=== PATIENT | female | born 1990 | race Caucasian/White ===

== ENCOUNTER → 2017-08-19 14:42 | Outpatient (CLI) | payer OTHER, MEDICAID, SELFPAY | PROVIDERS: Family Provider Internal Medicine; PCP Internal Medicine; Visit Provider Physician Assistant | DX: J02.9 Acute pharyngitis, unspecified (principal) | CPT/HCPCS: 87081 ==

== ENCOUNTER → 2017-09-30 14:55 | Outpatient (CLI) | payer OTHER, SELFPAY ==
[2017-09-30 15:57] LABS: Hematocrit 39.4 % (37-47); Hemoglobin 12.7 g/dl (12.0-15.0); Mean Corp Hgb Conc 32.2 g/gl (32-36); Mean Corpuscular Hgb 29.3 pg (27.0-32.0); Mean Platelet Vol. 9.5 fl (6.2-12.0); Platelet Count 230 K/mm3 (150-450); RBC Distribution Width CV 13.7 % (11.6-14.6); Red Blood Count 4.33 M/mm3 (4.2-5.4); White Blood Count 7.5 K/mm3 (4.4-11.0)
[2017-09-30 15:58] LABS: Scan Indicated on CBC? Y/N NO
[2017-09-30 16:05] LABS: International Normalized Ratio 1.1; Prothrombin Time (Protime)PT. 13.7 SECONDS (11.7-14.9)
== END ==
PROVIDERS: Family Provider Internal Medicine; PCP Internal Medicine; Visit Provider Nurse Practitioner Family
DX: R23.8 Other skin changes (principal); R58 Hemorrhage, not elsewhere classified
CPT/HCPCS: 36415; 85027; 85610

== ENCOUNTER → 2018-01-12 16:26 | Outpatient (CLI) | payer OTHER, SELFPAY | PROVIDERS: Visit Provider Obstetrics & Gynecology | DX: N39.0 Urinary tract infection, site not specified (principal) | CPT/HCPCS: 87077; 87086; 87088; 87186 ==

== ENCOUNTER → 2018-08-31 12:04 | Outpatient (CLI) | payer SELFPAY ==
[2017-11-17 13:07] VITALS: BMI 18.8
[2018-08-31 14:34] LABS: HIV - WCH Non-Reactive (Nonreactive)
[2018-09-01 05:06] LABS: HEPATITIS B SURFACE AG Negative (Negative); Hepatitis A AB, Total Positive (Negative); Hepatitis A IgM Antibody Negative (Negative); Hepatitis B Core AB IgM Negative (Negative); Hepatitis B Core Ab Total Negative (Negative); Hepatitis C Ab <0.1 s/co ratio (0.0-0.9)
[2018-09-01 11:39] LABS: Hep B Surface Antibodies Non Reactive (.)
== END ==
PROVIDERS: Family Provider Internal Medicine; PCP Internal Medicine; Referring Provider Dermatology; Visit Provider Dermatology
DX: Z77.21 Contact with and (suspected) exposure to potentially hazardous body fluids (principal)
CPT/HCPCS: 36415; 86703; 86704; 86705; 86706; 86708; 86709; 86803; 87340

== ENCOUNTER → 2018-11-29 12:19 | Outpatient (CLI) | payer OTHER, SELFPAY ==
[2018-09-07 16:13] VITALS: BMI 18.8
[2018-11-29 14:45] LABS: HIV - WCH Non-Reactive (Nonreactive)
[2018-11-30 05:06] LABS: HEPATITIS B SURFACE AG Negative (Negative); Hepatitis A AB, Total Positive (Negative); Hepatitis A IgM Antibody Negative (Negative); Hepatitis B Core AB IgM Negative (Negative); Hepatitis B Core Ab Total Negative (Negative); Hepatitis C Ab <0.1 s/co ratio (0.0-0.9)
[2018-11-30 12:19] LABS: Hep B Surface Antibodies Non Reactive (.)
== END ==
PROVIDERS: Family Provider Internal Medicine; PCP Internal Medicine; Referring Provider Dermatology; Visit Provider Dermatology
DX: Z77.21 Contact with and (suspected) exposure to potentially hazardous body fluids (principal)
CPT/HCPCS: 36415; 86703; 86704; 86705; 86706; 86708; 86709; 86803; 87340

== ENCOUNTER → 2020-02-21 10:02 | Outpatient (CLI) | payer OTHER, SELFPAY ==
[2018-09-07 16:13] VITALS: BMI 18.8
[2020-02-21 11:29] LABS: Thyroid Stim Hormone (TSH) 1.86 uIU/mL (0.358-3.74)
[2020-02-24 17:17] LABS: HPV Reflexed? YES, CHARGE PATIENT
== END ==
PROVIDERS: PCP Internal Medicine; Visit Provider Student in an Organized Health Care Education/Training Program
DX: Z12.4 Encounter for screening for malignant neoplasm of cervix (principal); N92.6 Irregular menstruation, unspecified
CPT/HCPCS: 36415; 84443; 87624; 88175; G0145

== ENCOUNTER → 2020-04-09 16:45 | Outpatient (CLI) | payer OTHER, SELFPAY ==
[2018-09-07 16:13] VITALS: BMI 18.8
[2020-04-12 03:07] LABS: Chlamydia By Nucleic Acid AMP Negative (Negative)
[2020-04-12 08:45] LABS: Gonococcus By Nucleic Acid AMP Negative (Negative)
== END ==
PROVIDERS: PCP Internal Medicine; Visit Provider Student in an Organized Health Care Education/Training Program
DX: Z30.430 Encounter for insertion of intrauterine contraceptive device (principal); Z11.3 Encounter for screening for infections with a predominantly sexual mode of transmission
CPT/HCPCS: 87491; 87591

== ENCOUNTER → 2020-04-17 10:06 | Outpatient (CLI) | payer OTHER, SELFPAY ==
[2018-09-07 16:13] VITALS: BMI 18.8
== END ==
PROVIDERS: PCP Internal Medicine; Referring Provider Dermatology; Visit Provider Dermatology
DX: U07.1 COVID-19 (principal)
CPT/HCPCS: 87635; C9803; U0003

== ENCOUNTER → 2020-12-14 14:47 | Outpatient (CLI) | payer OTHER, SELFPAY ==
[2020-12-14 14:09] VITALS: BMI 20.2
[2020-12-14 16:54] LABS: Absolute Lymphocyte Count 1.94 X10^3/uL (0.83-4.51); Absolute Neutrophil Count 4.4 X10^3/uL (2.0-7.7); Basophil# 0.03 X10^3/uL; Basophil% 0.4 % (0-1); Eosinophil# 0.06 X10^3/uL; Eosinophils% 0.9 % (0-5); Hematocrit 41.6 % (37-47); Hemoglobin 13.5 g/dL (12.0-15.0); Lymphocyte # 1.94 X10^3/ul (0.83-4.51); Lymphocyte % 28.2 % (19-41); Mean Corp Hgb Conc 32.5 g/dL (32-36); Mean Corpuscular Hgb 30.3 pg (27.0-32.0); Mean Corpuscular Volume 93.5 fL (81-99); Monocyte# 0.47 X10^3/uL; Monocyte% 6.8 % (0-10); NRBC Flagged by Analyzer 0 % (0-5); Neutrophil # 4.37 X10^3/uL (2.7-7.7); Neutrophil % 63.4 % (47-70); Platelet Count 320 K/mm3 (150-450); RBC Distribution Width SD 44.6 fl (35.1-43.9); Red Blood Count 4.45 M/mm3 (4.2-5.4); White Blood Count 6.9 K/mm3 (4.4-11.0)
[2020-12-14 17:36] LABS: ALB/GLOB Ratio 1.1 RATIO (0.9-2.4); AST(SGOT) 17 U/L (15-37); Alanine Aminotransfer ALT/SGPT 28 U/L (13-56); Albumin, Serum 4.1 g/dL (3.2-5.0); Alkaline Phosphatase 65 U/L (45-117); Anion Gap 5 (5-15); BUN 16 mg/dL (7-18); Calcium,Total 8.8 mg/dL (8.5-10.1); Chloride 102 mmol/L (98-107); EST Glomerular Filtration Rate 69 mL/min (>60); Est Glom Filt Rate - Afr Amer 83 mL/min (>60); Globulin 3.8 g/dL (2.2-4.2); Glucose 77 mg/dL (74-106); Protein, Total 7.9 g/dL (6.4-8.2); Sodium Level 137 mmol/L (136-145); T4 Free Direct 1.06 ng/dL (0.76-1.46); Thyroid Stim Hormone (TSH) 1.32 uIU/mL (0.358-3.74)
== END ==
PROVIDERS: PCP Internal Medicine; Referring Provider Internal Medicine; Visit Provider Internal Medicine
DX: F41.9 Anxiety disorder, unspecified (principal); F32.9 Major depressive disorder, single episode, unspecified
CPT/HCPCS: 36415; 80053; 84439; 84443; 85025

== ENCOUNTER → 2021-01-11 13:59 | Outpatient (CLI) | payer OTHER, SELFPAY ==
[2021-01-11 15:41] LABS: Amphetamine Urine VISTA NEGATIVE (<1000 ng/mL); Barbiturate Urine VISTA NEGATIVE (< 200 ng/mL); Benzodiazepine Urine VISTA NEGATIVE (< 200 ng/mL); Cocaine Urine VISTA NEGATIVE (< 300 ng/mL); Ecstacy Urine VISTA NEGATIVE (< 500 ng/mL); Methadone Urine VISTA NEGATIVE (< 300 ng/mL); PCP Urine VISTA NEGATIVE (< 25 ng/mL); THC Urine VISTA NEGATIVE (< 50 ng/mL); Vista UDS pH Range 7
== END ==
PROVIDERS: PCP Internal Medicine; Referring Provider Nurse Practitioner Family; Visit Provider Nurse Practitioner Family
DX: F41.1 Generalized anxiety disorder (principal); F41.0 Panic disorder [episodic paroxysmal anxiety]
CPT/HCPCS: 80307

== ENCOUNTER → 2021-10-18 | Outpatient (CLI) | payer BC, SELFPAY ==
[2021-10-18 11:58] LABS: Basophil# 0.03 X10^3/uL; Basophil% 0.5 % (0-1); Eosinophils% 1.8 % (0-5); Hematocrit 39.8 % (37-47); Lymphocyte % 35.3 % (19-41); Mean Corp Hgb Conc 32.7 g/dL (32-36); Mean Corpuscular Hgb 30.4 pg (27.0-32.0); Mean Platelet Vol. 9.7 fl (6.2-12.0); Monocyte# 0.49 X10^3/uL; Monocyte% 8.7 % (0-10); NRBC Flagged by Analyzer 0 % (0-5); Neutrophil # 3.02 X10^3/uL (2.7-7.7); Neutrophil % 53.3 % (47-70); Platelet Count 264 K/mm3 (150-450); RBC Distribution Width CV 12.6 % (11.6-14.6); RBC Distribution Width SD 43.3 fl (35.1-43.9); Red Blood Count 4.28 M/mm3 (4.2-5.4); White Blood Count 5.7 K/mm3 (4.4-11.0)
[2021-10-18 12:29] LABS: AST(SGOT) 12 U/L (15-37); Alanine Aminotransfer ALT/SGPT 23 U/L (13-56); Albumin, Serum 3.9 g/dL (3.2-5.0); Alkaline Phosphatase 59 U/L (45-117); Anion Gap 6 (5-15); BUN 13 mg/dL (7-18); BUN/Creat Ratio 15.2 RATIO (10-20); Calcium,Total 8.9 mg/dL (8.5-10.1); Chloride 103 mmol/L (98-107); Cholesterol 138 mg/dL (200); Creatinine, Serum 0.86 mg/dL (0.55-1.02); EST Glomerular Filtration Rate 82 mL/min (>60); Est Glom Filt Rate - Afr Amer 99 mL/min (>60); Globulin 3.9 g/dL (2.2-4.2); Glucose 81 mg/dL (74-106); High Density Lipoprotein 71 mg/dL; Potassium 4.4 mmol/L (3.5-5.1); Protein, Total 7.8 g/dL (6.4-8.2); Sodium Level 136 mmol/L (136-145); Thyroid Stim Hormone (TSH) 1.95 uIU/mL (0.358-3.74); Triglycerides 33 mg/dL; Very Low Density Lipoprotein 7 mg/dL (5-40)
== END | disposition home or self-care (01) ==
LOC: BIMLAB 10:57
PROVIDERS: PCP Internal Medicine; Visit Provider Physician Assistant
DX: D64.9 Anemia, unspecified (principal); F41.9 Anxiety disorder, unspecified; F32.9 Major depressive disorder, single episode, unspecified; Z13.220 Encounter for screening for lipoid disorders
CPT/HCPCS: 36415; 80053; 80061; 84443; 85025

== ENCOUNTER → 2022-11-07 | Outpatient (CLI) | payer BC, SELFPAY ==
[2022-11-07 12:31] LABS: Absolute Lymphocyte Count 1.85 X10^3/uL (0.83-4.51); Absolute Neutrophil Count 2.3 X10^3/uL (2.0-7.7); Basophil# 0.03 X10^3/uL; Basophil% 0.6 % (0-1); Eosinophils% 2.1 % (0-5); Hematocrit 40.3 % (37-47); Hemoglobin 12.9 g/dL (12.0-15.0); Lymphocyte # 1.85 X10^3/ul (0.83-4.51); Lymphocyte % 39.7 % (19-41); Mean Corpuscular Hgb 30.4 pg (27.0-32.0); Mean Platelet Vol. 10.1 fl (6.2-12.0); Monocyte# 0.38 X10^3/uL; Monocyte% 8.2 % (0-10); NRBC Flagged by Analyzer 0 % (0-5); Neutrophil # 2.29 X10^3/uL (2.7-7.7); Neutrophil % 49.2 % (47-70); Platelet Count 283 K/mm3 (150-450); RBC Distribution Width CV 12.6 % (11.6-14.6); RBC Distribution Width SD 43.5 fl (35.1-43.9); Red Blood Count 4.24 M/mm3 (4.2-5.4); White Blood Count 4.7 K/mm3 (4.4-11.0)
[2022-11-07 12:41] LABS: Vitamin B12 284 pg/mL (211-911); Vitamin D,25 Hydroxy 34.8 ng/mL
[2022-11-07 12:57] LABS: ALB/GLOB Ratio 1.1 RATIO (0.9-2.4); AST(SGOT) 12 U/L (15-37); Alanine Aminotransfer ALT/SGPT 17 U/L (13-56); Albumin, Serum 3.9 g/dL (3.2-5.0); Alkaline Phosphatase 65 U/L (45-117); Anion Gap 5 (5-15); BUN 11 mg/dL (7-18); BUN/Creat Ratio 13.1 RATIO (10-20); Calcium,Total 8.9 mg/dL (8.5-10.1); Chloride 107 mmol/L (98-107); Cholesterol 127 mg/dL (200); Creatinine, Serum 0.84 mg/dL (0.55-1.02); EST Glomerular Filtration Rate 83 mL/min (>60); Est Glom Filt Rate - Afr Amer 100 mL/min (>60); Globulin 3.4 g/dL (2.2-4.2); Glucose 80 mg/dL (74-106); High Density Lipoprotein 69 mg/dL; Potassium 3.9 mmol/L (3.5-5.1); Protein, Total 7.3 g/dL (6.4-8.2); Sodium Level 139 mmol/L (136-145); Thyroid Stim Hormone (TSH) 2.21 uIU/mL (0.358-3.74); Triglycerides 32 mg/dL; Very Low Density Lipoprotein 6 mg/dL (5-40)
== END | disposition home or self-care (01) ==
LOC: BIMLAB 10:13
PROVIDERS: PCP Internal Medicine; Referring Provider Nurse Practitioner Family; Visit Provider Nurse Practitioner Family
DX: F41.1 Generalized anxiety disorder (principal); F41.0 Panic disorder [episodic paroxysmal anxiety]; E56.9 Vitamin deficiency, unspecified
CPT/HCPCS: 36415; 80053; 80061; 82306; 82607; 84443; 85025

== ENCOUNTER → 2024-11-16 | Outpatient (CLI) | payer BC, SELFPAY ==
[2024-11-16 16:49] LABS: Hematocrit 40.1 % (37-47); Hemoglobin 13.5 g/dL (12.0-15.0); Immature Granulocytes Count 0.010 X10^3/uL (0.0-0.0); Mean Corp Hgb Conc 33.7 g/dL (32-36); Mean Corpuscular Volume 90.3 fL (81-99); Mean Platelet Vol. 9.4 fl (6.2-12.0); NRBC Flagged by Analyzer 0 % (0-5); Platelet Count 294 K/mm3 (150-450); RBC Distribution Width CV 12.7 % (11.6-14.6); RBC Distribution Width SD 42.1 fl (35.1-43.9); Red Blood Count 4.44 M/mm3 (4.2-5.4); White Blood Count 5.7 K/mm3 (4.4-11.0)
[2024-11-16 17:41] LABS: AST(SGOT) 27 U/L (<=31); Alanine Aminotransfer ALT/SGPT 31 U/L (<=34); Albumin, Serum 4.4 g/dL (3.5-5.0); Alkaline Phosphatase 73 U/L (35-104); Anion Gap 12 (5-15); BUN 20 mg/dL (4-19); BUN/Creat Ratio 24.4 RATIO (10-20); Calcium,Total 9.4 mg/dL (7.6-11.0); Carbon Dioxide 22.2 mmol/L (21.0-32.0); Chloride 102 mmol/L (98-108); Cholesterol 184 mg/dL (<=200); Globulin 3.2 g/dL (2.2-4.2); Glucose 80 mg/dL (70-99); Low Density Lipoprotein Calc. 104 mg/dL; Potassium 4.3 mmol/L (3.3-5.1); Triglycerides 45 mg/dL; Very Low Density Lipoprotein 9 mg/dL (5-40); Vitamin B12 456 pg/mL (180-914); Vitamin D,25 Hydroxy 32.2 ng/mL (30-100); cholesterol:hdl ratio screen 2.59
== END | disposition home or self-care (01) ==
LOC: VSLAB 11:42
PROVIDERS: PCP Nurse Practitioner Family; Visit Provider Nurse Practitioner Family
DX: F41.9 Anxiety disorder, unspecified (principal); E56.9 Vitamin deficiency, unspecified; Z13.228 Encounter for screening for other metabolic disorders
CPT/HCPCS: 36415; 80053; 80061; 82306; 82607; 83036; 84443; 85025; 86376

== ENCOUNTER → 2025-03-24 | Outpatient (CLI) | payer BC, SELFPAY ==
[2025-03-24 11:53] LABS: Creatinine, Urine (random) 30.70 mg/dL (28.00-217.00); Microalbumin,Random Urine 21.4 mg/L (<20 mg/L)
--- OUTSIDE RECORDS SUMMARY | 2025-03-24 11:59 | XMS RPT_ITS | CCD ---
Author Organization [facility] Care Team Providers Care Manager Deli Name Role Phone Dr. Santana Pa Primary Care Provider [phone] Dr. Santana Pa Referring Provider [phone] STEPHANIE Maddox Attending Provider Unavailab Dr. Santana Finch Primary Care Provider [phone] Dr. Santana Pa Referring Provider [phone] Chiara RICE FARMER RICE FARMER-C Justin Attending Provider [phone] Unavailable Primary Care Provider Unavailabl e Chiara RICE FARMER-CJustin Primary Care Provider Chiara RICE FARMER-C, Justin Attending Provider Justin Green Attending Unavailable Justin Green Primary Care Unavailable Medications Current Medications Medication Drug Class(es) Dates Sig (Normalized) Sig (Original) escitalopram 10 mg oral tablet (18 sources) Serotonin Reuptake Inhibitor Start: 12-18-2022 End: 09-03-2023 take 1 tablet by mouth once daily Escitalopram Oxalate 10 mg tablet Active 10 mg PO DAILY 30 0 September 03, 2023 11:31am Start: 04-25-2022 End: 11-07-2022 Escitalopram Oxalate 5 mg ta blet Discontinued 5 mg .ROUTE .COMPLEX 90 3 November 07, 2022 9:59am November 07, 2022 10:04am 5 mg; Start: 01-11-2021 End: 04-25-2022 take 1 tablet by mouth once daily Escitalopram Oxalate 10 mg tablet Discontinued 0 .ROUTE .COMPLEX 90 0 February 07, 2022 4:23pm April 25, 2022 10:56am take 1 tablet by mouth once daily Start: 12-14-2020 End: 01-11-2021 take 1 tablet by mouth once daily Escitalopram Oxalate 5 mg tablet Discontinued 5 mg PO DAILY 30 December 14, 2020 12:00am January 11, 2021 1:34pm levonorgestrel 0.928068 mg/hr intrauterine system (3 sources) Progestin, Progestin-containing Intrauterine Device Start: 09-30-2017 Levonorgestrel (Mirena) 20 mcg/24 hr (5 years) intrauterine device Active 1 NMA INTRA-UTER ONCE September 30, 2017 12:00am Start: 09-30-2017 Levonorgestrel (Mirena) 20 mcg/24 hr (5 years) intrauterine device Active 1 INSERT INTRA-UTER ONCE September 30, 2017 9:34am tiZANidine 2 mg oral tablet (2 sources) Central alpha-2 Adrenergic Agonist Start: 09-11-2022 take 1 tablet by mouth at bedtime as needed Tizanidine 2 mg tablet Active 2 mg PO BEDTIME as needed for muscle spasticity September 11, 2022 12:00am vitamin b12 1 mg/ml injectable solution (2 sources) Vitamin B12 Start: 11-07-2022 inject 1000 ug by intramuscular injection every month Cyanocobalamin (Vitamin B-12) 1,000 mcg/mL solution Active 1000 ug IM EVERY MONTH 100 November 07, 2022 12:00am Cobalamin deficiency Deficiency of other specified B group vitamins Start: 11-07-2022 inject 1000 ug by in tramuscular injection every month Cyanocobalamin (Vitamin B-12) Active 1000 MCG IM EVERY MONTH 100 November 07, 2022 12:00am Completed/Discontinued Medications Medication Drug Class(es) Dates Sig (Normalized) Sig (Original) acetaminophen 325 mg / oxyCODONE hydrochloride 5 mg oral tablet (3 sources) Opioid Agonist Start: 07-26-2016 End: 08-19-2017 Oxycodone-Acetamino phen 1 TABLET tablet Discontinued 1 - 2 {tbl} PO EVERY 4 HOURS NEEDED as needed for Pain July 26, 2016 1:00am August 19, 2017 8:25am Start: 07-26-2016 End: 08-19-2017 take 1 tablet by mouth every four hours as needed Oxycodone-Acetaminophen Discontinued 1 - 2 TABLET PO EVERY 4 HOURS NEEDED July 26, 2016 9:50am August 19, 2017 8:25am cyclobenzaprine hydrochloride 10 mg oral tablet (3 sources) Muscle Relaxant Start: 11-17-2017 End: 09-07-2018 take 1 tablet by mouth three times daily as needed for muscle spasms Cyclobenzaprine 10 mg tablet Discontinued 10 mg PO THREE TIMES A DAY as needed for muscle spasm 60 1 November 17, 2017 12:00am September 07, 2018 4:11pm docusate sodium 100 mg oral capsule (3 sources) Start: 07-26-2016 End: 08-19-2017 take 1 capsule by mouth twice daily as needed for constipation Docusate Sodium 100 MG capsule Discontinued 100 mg PO TWICE DAILY NEEDED as needed for Constipation 60 0 July 26, 2016 1:00am August 19, 2017 8:25am ferrous sulfate 325 mg delayed release oral tablet (3 sources) Start: 06-09-2016 End: 08-19-2017 take 1 tablet by mouth twice daily Ferrous Sulfate 325 MG tablet,delayed release (DR/EC) Discontinued 325 mg PO TWICE A DAY June 09, 2016 1:00am August 19, 2017 8:25am FLUoxetine 10 mg oral tablet (2 sources) Serotonin Reuptake Inhibitor Start: 11-07-2022 End: 12-18-2022 take 1 tablet by mouth once daily Fluoxetine 10 mg tablet Discontinued 10 mg PO DAILY 90 1 November 07, 2022 12:00am December 18, 2022 3:01pm ibuprofen 800 mg oral tablet (3 sources) Nonsteroidal Anti-inflammator y Drug Start: 07-26-2016 End: 09-30-2017 take 1 tablet by mouth three times daily as needed for pain Ibuprofen 800 MG tablet Discontinued 800 mg PO 3 TIMES DAILY NEEDED as needed for Pain 40 July 26, 2016 1:00am September 30, 2017 2:02pm Lactobacillus Combination No.8 (Adult Probiotic) 3 billion cell capsule (3 sources) Start: 09-30-2017 End: 09-30-2017 take 3 capsules by mouth once daily Lactobacillus Combination No.8 (Adult Probiotic) 3 billion cell capsule Discontinued 3000 MMU CELLS PO daily September 30, 2017 9:34am September 30, 2017 2:02pm Start: 09-30-2017 End: 09-30-2017 take 3 capsules by mouth once daily Lactobacillus Combination No.8 (Adult Probiotic) 3 billion cell capsule Discontinued 3000 NMA PO daily September 30, 2017 12:00am September 30, 2017 2:02pm Start: 09-30-2017 End: 09-30-2017 take 3 capsules by mouth once daily Lactobacillus Combination No.8 (Adult Probiotic) 3 billion cell capsule Discontinued 3000 MMU CELLS PO daily September 30, 2017 12:00am September 30, 2017 2:02pm LORazepam 0.5 mg oral tablet (8 sources) Benzodiazepine Start: 01-11-2021 End: 11-07-2022 take 1 tablet by mouth once daily as needed for anxiety Lorazepam 0.5 mg tablet Discontinued 0.5 mg PO DAILY as needed for anxiety 10 0 April 19, 2021 2:36pm November 07, 2022 10:01am Multivitamin (Daily Multi-Vitamin) tablet (3 sources) Start: 11-17-2017 End: 09-07-2018 take 1 tablet by mouth once daily in the morning Multivitamin (Daily Multi-Vitamin) tablet Discontinued 1 TABLET PO EVERY MORNING November 17, 2017 1:11pm September 07, 2018 4:11pm Start: 11-17-2017 End: 09-07-2018 Multivitamin (Daily Multi-Vi tamin) tablet Discontinued 1 {tbl} PO EVERY MORNING November 17, 2017 12:00am September 07, 2018 4:11pm Start: 11-17-2017 End: 09-07-2018 take 1 tablet by mouth once daily in the morning Multivitamin (Daily Multi-Vitamin) tablet Discontinued 1 TABLET PO EVERY MORNING November 17, 2017 12:00am September 07, 2018 4:11pm omeprazole 20 mg delayed release oral capsule (3 sources) Proton Pump Inhibitor Start: 09-30-2017 End: 09-30-2017 take 1 capsule by mouth once daily Omeprazole 20 mg capsule,delayed release(DR/EC) Discontinued 20 mg PO daily September 30, 2017 12:00am September 30, 2017 1:59pm prednisoLONE acetate 10 mg/ml ophthalmic suspension (3 sources) Corticosteroid Start: 08-19-2017 End: 09-30-2017 Prednisolone Acetate 1 % drops,suspension Discontinued OPHTHALMIC 10 August 19, 2017 12:00am September 30, 2017 1:59pm Start: 08-19-2017 End: 09-30-2017 Prednisolone Acetate Discont inued OPHTHALMIC 10 August 19, 2017 8:25am September 30, 2017 1:59pm Vit,Fqfa60-Owld-Rzilt (2 sources) Start: 05-04-2016 End: 08-19-2017 take 1 tablet by mouth once daily Vit,Nvbf13-Rthe-Qmddj Discontinued 1 TABLET PO DAILY May 04, 2016 3:05pm August 19, 2017 8:26am Start: 05-04-2016 End: 08-19-2017 take 1 tablet by mouth once daily Vit,Ajwi17-Enqt-Hknuw Discontinued 1 TABLET PO DAILY May 04, 2016 1:00am August 19, 2017 8:26am Vit,Eqmr33-Onrd-Amckc 1 TABLET tablet (1 source) Start: 05-04-2016 End: 08-19-2017 take 1 tablet by mouth once daily Vit,Sbni24-Yaef-Aiqie 1 TABLET tablet Discontinued 1 {tbl} PO DAILY May 04, 2016 1:00am August 19, 2017 8:26am spironolactone 50 mg oral tablet (7 sources) Aldosterone Antagonist Start: 12-14-2020 End: 04-25-2022 Spironolactone 50 mg tablet Discontinued 25 mg PO DAILY December 14, 2020 2:30pm April 25, 2022 10:22am Start: 12-14-2020 End: 04-25-2022 take 25 mg by mouth once daily Spironolactone Disconti nued 25 MG PO DAILY December 14, 2020 2:30pm April 25, 2022 10:22am Start: 09-07-2018 End: 12-14-2020 take 1 tablet by mouth twice daily Spironolactone 50 mg tablet Discontinued 50 mg PO TWICE A DAY September 07, 2018 12:00am December 14, 2020 2:30pm Comment on above: Take 50 mg by mouth twice daily. Problems Problem Classification Problem Date Documented Date Episodic/Chronic Acute and unspecified renal failure (3 sources) Injury of kidney; Translations: [Acute kidney failure, unspecified] 09-25-2015 Episodic Anxiety disorders (10 sources) Generalized anxiety disorder; Translations: [Generalized anxiety disorder] Onset: 02-15-2010 Chronic Deficiency and other anemia (3 sources) Anemia; Translations: [Anemia, unspecified] 09-30-2017 Episodic Fluid and electrolyte disorders (3 sources) Dehydration; Translations: [Dehydration] 09-25-2015 Episodic Headache; including migraine (3 sources) Migraine; Translations: [Migraine, unspecified, not intractable, without status migrainosus] 09-30-2017 Chronic Noninfectious gastroenteritis (3 sources) Gastroenteritis; Translations: [Noninfective gastroenteritis and colitis, unspecified] 09-25-2015 Episodic Nutritional deficiencies (5 sources) Cobalamin deficiency; Translations: [Deficiency of other specified B group vitamins] 11-07-2022 Episodic Other connective tissue disease (3 sources) Pain of right forearm; Translations: [Pain in right forearm] 11-17-2017 Episodic Other non-traumatic joint disorders (3 sources) Pain in unspecified knee; Translations: [Knee pain] 09-30-2017 Episodic Other skin disorders (3 sources) Easy bruising; Translations: [Other skin changes] 11-17-2017 Episodic Other upper respiratory infections (5 sources) Pharyngitis; Translations: [Acute pharyngitis, unspecified] 08-19-2017 Episodic Spondylosis; intervertebral disc disorders; other back problems (3 sources) Backache; Translations: [Dorsalgia, unspecified] 09-30-2017 Episodic Unclassified (3 sources) Delivered by section 07-27-2016 Results Test Name Value Interpretation Reference Range Facility Thyroid Peroxidase ABon 07-0 THYR PEROX AB < 9 Normal 0-34 [facility] Comment on above: Result Comment: Perf ormed at: - [facility] [address] [id number] [employer] Appliance Assembler: Felix Buckner PhD, Phone: [phone] Performed By: #### L 506.1001, L3300.6900, L503.0106, L501.9985, L501.9520, L100.0100, L500.4050, L500.4100 #### [facility] [address] [place], [address] Absolute lymphocyte countOrd ered By: Justin Guadarrama on 11-16-2024 Lymphocytes Auto (Unsp spec) [#/Vol] 1.87 10*3/uL 0.83-4.51 [facility] Absolute neutrophil countOrd ered By: Justin Guadarrama on 11-16-2024 Neutrophils (Bld) [#/Vol] 3.1 10*3/uL 2.0-7.7 [facility] Anion gap in Serum or Plasma Ordered By: Justin Dumontder on 11-16-2024 Anion gap [Moles/Vol] 12 mmol/L 5-15 [facility] Automated lymphocyte count a s percentage of total leukocytesOrdered By: Justin Guadarrama on 11-16-2024 Lymphocytes/100 WBC Auto (Unsp spec) 32.6 % 19-41 [facility] BUN/creatinine ratioOrdered By: Justin Dumontder on 11-16-2024 Urea nitrogen/Creatinine [Mass ratio] 24.4 mg/mg High 10-20 [facility] Basophil percentageOrdered B y: Justin Dumontder on 11-16-2024 Basophils/100 WBC (Bld) 0.5 % 0-1 [facility] Bilirubin, totalOrdered By: Justin Dumontder on 11-16-2024 Bilirubin [Mass/Vol] 0.51 mg/dL 0.00-1.30 [facility] CBC W/Diff, Automatedon Absolute Lymph 1.87 X10 3/uL Normal 0.83-4.51 [facility] Comment on above: Performed By: #### L 506.1001, L3300.6900, L503.0106, L501.9985, L501.9520, L100.0100, L500.4050, L500.4100 #### [facility] [address] [place], [address] Absolute Neut 3.1 X10 3/uL Normal 2.0-7.7 [facility] Comment on above: Performed By: #### L 506.1001, [id number], L503.0106, L501.9985, L501.9520, L100.0100, L500.4050, L500.4100 #### [facility] [address] [facility] [place], [address] Basophils/100 WBC (Bld) 0.5 % Normal 0-1 [facility] Comment on above: Performed By: #### L 506.1001, [id number], L503.0106, L501.9985, L501.9520, L100.0100, L500.4050, L500.4100 #### [facility] [address] [place], [address] Eosinophils/100 WBC (Bld) 2.4 % Normal 0-5 [facility] Comment on above: Performed By: #### L 506.1001, [id number], L503.0106, L501.9985, L501.9520, L100.0100, L500.4050, L500.4100 #### [facility] [address] [place], [address] Erythrocyte distribution width (RBC) [Ratio] 12.7 % Normal 11.6-14.6 [facility] Comment on above: Performed By: #### L 506.1001, [id number], L503.0106, L501.9985, L501.9520, L100.0100, L500.4050, L500.4100 #### [facility] [address] [place], [address] Hematocrit (Bld) [Volume fraction] 40.1 % Normal 37-47 [facility] Comment on above: Performed By: #### L 506.1001, [id number], L503.0106, L501.9985, L501.9520, L100.0100, L500.4050, L500.4100 #### [facility] [address] [place], [address] Hemoglobin (Bld) [Mass/Vol] 13.5 g/dL Normal 12.0-15.0 [facility] Comment on above: Performed By: #### L 506.1001, [id number], L503.0106, L501.9985, L501.9520, L100.0100, L500.4050, L500.4100 #### [facility] [address] [place], [address] IG% 0.200 Normal 0.0-0.9 [facility] Comment on above: Result Comment: IG% - Immature Granulocytes (promyelocytes, myelocytes and metamyelocytes) > 1% indicates that a LEFT SHIFT is Present. Performed By: #### L 506.1001, L3300.6900, L503.0106, L501.9985, L501.9520, L100.0100, L500.4050, L500.4100 #### [facility] [address] [place], [address] Lymphocytes/100 WBC (Bld) 32.6 % Normal 19-41 [facility] Comment on above: Performed By: #### L 506.1001, [id number], L503.0106, L501.9985, L501.9520, L100.0100, L500.4050, L500.4100 #### [facility] [address] [place], [address] MCH (RBC) [Entitic mass] 30.4 pg Normal 27.0-32.0 [facility] Comment on above: Performed By: #### L 506.1001, [id number], L503.0106, L501.9985, L501.9520, L100.0100, L500.4050, L500.4100 #### [facility] [address] [place], [address] MCHC (RBC) [Mass/Vol] 33.7 g/dL Normal 32-36 [facility] Comment on above: Performed By: #### L 506.1001, [id number], L503.0106, L501.9985, L501.9520, L100.0100, L500.4050, L500.4100 #### [facility] [address] [place], [address] MCV (RBC) [Entitic vol] 90.3 fL Normal 81-99 [facility] Comment on above: Performed By: #### L 506.1001, [id number], L503.0106, L501.9985, L501.9520, L100.0100, L500.4050, L500.4100 #### [facility] [address] [place], [address] Monocytes/100 WBC (Bld) 9.9 % Normal 0-10 [facility] Comment on above: Performed By: #### L 506.1001, [id number], L503.0106, L501.9985, L501.9520, L100.0100, L500.4050, L500.4100 #### [facility] [address] [facility] [place], [address] Neutrophils/100 WBC (Bld) 54.4 % Normal 47-70 [facility] Comment on above: Performed By: #### L 506.1001, [id number], L503.0106, L501.9985, L501.9520, L100.0100, L500.4050, L500.4100 #### [facility] [address] [facility] [place], [address] Nucleated RBC (Bld) [#/Vol] 0 10*3/uL Normal 0-5 [facility] Comment on above: Performed By: #### L 506.1001, [id number], L503.0106, L501.9985, L501.9520, L100.0100, L500.4050, L500.4100 #### [facility] [address] [facility] [place], [address] Platelet mean volume (Bld) [Entitic vol] 9.4 fL Normal 6.2-12.0 [facility] Comment on above: Performed By: #### L 506.1001, [id number], L503.0106, L501.9985, L501.9520, L100.0100, L500.4050, L500.4100 #### [facility] [address] [place], [address] Platelets (Bld) [#/Vol] 294 10*3/uL Normal 150-450 [facility] Comment on above: Performed By: #### L 506.1001, [id number], L503.0106, L501.9985, L501.9520, L100.0100, L500.4050, L500.4100 #### [facility] [address] [place], [address] RBC (Bld) [#/Vol] 4.44 10*6/uL Normal 4.2-5.4 [facility] Comment on above: Performed By: #### L 506.1001, L3300.6900, L503.0106, L501.9985, L501.9520, L100.0100, L500.4050, L500.4100 #### [facility] [address] [place], [address] RDW SD 42.1 fl Normal 35.1-43.9 [facility] Comment on above: Performed By: #### L 506.1001, L3300.6900, L503.0106, L501.9985, L501.9520, L100.0100, L500.4050, L500.4100 #### [facility] [address] [place], [address] WBC (Bld) [#/Vol] 5.7 10*3/uL Normal 4.4-11.0 [facility] Comment on above: Performed By: #### L 506.1001, L3300.6900, L503.0106, L501.9985, L501.9520, L100.0100, L500.4050, L500.4100 #### [facility] [address] [place], [address] Calculated very low density lipoprotein (VLDL) cholesterol measurementOrdered By: Justin Guadarrama on 11-16-2024 Calculated very low density lipoprotein (VLDL) cholesterol measurement 9 mg/dL 5-40 [facility] Carbon dioxide, total [Moles /volume] in Central venous bloodOrdered By: Justin Guadarrama on 11-16-2024 CO2 [Moles/Vol] 22.2 mmol/L 21.0-32.0 [facility] Chloride assayOrdered By: Tania Guadarrama on 11-16-2024 Chloride [Moles/Vol] 102 mmol/L 98-108 [facility] Comprehensive Metabolic Prof ilon 11-16-2024 Albumin [Mass/Vol] 4.4 g/dL Normal 3.5-5.0 [facility] Comment on above: Performed By: #### L 506.1001, L3300.6900, L503.0106, L501.9985, L501.9520, L100.0100, L500.4050, L500.4100 #### [facility] [address] [place], [address] Albumin/Globulin [Mass ratio] 1.4 {ratio} Normal 0.9-2.4 [facility] Comment on above: Performed By: #### L 506.1001, L3300.6900, L503.0106, L501.9985, L501.9520, L100.0100, L500.4050, L500.4100 #### [facility] [address] [place], [address] ALK PHOS 73 U/L Normal 35-104 [facility] Comment on above: Performed By: #### L 506.1001, L3300.6900, L503.0106, L501.9985, L501.9520, L100.0100, L500.4050, L500.4100 #### [facility] [address] [place], [address] ALT [Catalytic activity/Vol] 31 U/L Normal <=34 [facility] Comment on above: Performed By: #### L 506.1001, L3300.6900, L503.0106, L501.9985, L501.9520, L100.0100, L500.4050, L500.4100 #### [facility] [address] [place], [address] AST [Catalytic activity/Vol] 27 U/L Normal <=31 [facility] Comment on above: Performed By: #### L 506.1001, L3300.6900, L503.0106, L501.9985, L501.9520, L100.0100, L500.4050, L500.4100 #### [facility] [address] [place], [address] Bilirubin [Mass/Vol] 0.51 mg/dL Normal 0.00-1.30 [facility] Comment on above: Performed By: #### L 506.1001, L3300.6900, L503.0106, L501.9985, L501.9520, L100.0100, L500.4050, L500.4100 #### [facility] [address] [place], [address] BUN/CRE 24.4 RATIO High 10-20 [facility] Comment on above: Performed By: #### L 506.1001, L3300.6900, L503.0106, L501.9985, L501.9520, L100.0100, L500.4050, L500.4100 #### [facility] [address] [place], [address] Calcium [Mass/Vol] 9.4 mg/dL Normal 7.6-11.0 [facility] Comment on above: Performed By: #### L 506.1001, L3300.6900, L503.0106, L501.9985, L501.9520, L100.0100, L500.4050, L500.4100 #### [facility] [address] [place], [place], [id number] (357) Chloride [Moles/Vol] 102 mmol/L Normal 98-108 [facility] Comment on above: Performed By: #### L 506.1001, L3300.6900, L503.0106, L501.9985, L501.9520, L100.0100, L500.4050, L500.4100 #### [facility] [address] [place], [address] (729 CO2 [Moles/Vol] 22.2 mmol/L Normal 21.0-32.0 [facility] Comment on above: Performed By: #### L 506.1001, L3300.6900, L503.0106, L501.9985, L501.9520, L100.0100, L500.4050, L500.4100 #### [facility] [address] [place], [address] (271) Creatinine [Mass/Vol] 0.82 mg/dL Normal 0.70-1.20 [facility] Comment on above: Performed By: #### L 506.1001, L3300.6900, L503.0106, L501.9985, L501.9520, L100.0100, L500.4050, L500.4100 #### [facility] [address] [place], [address] GAP 12 Normal 5-15 [facility] Comment on above: Performed By: #### L 506.1001, L3300.6900, L503.0106, L501.9985, L501.9520, L100.0100, L500.4050, L500.4100 #### [facility] [address] [place], [address] (439 GFR/1.73 sq M.predicted among non-blacks MDRD (S/P/Bld) [Vol rate/Area] 96 mL/min/{1.73_m2} Normal >60 [facility] Comment on above: Result Comment: mL/m in/1.73m2 CKD-EPI Creatinine Equation (2020) Performed By: #### L 506.1001, L3300.6900, L503.0106, L501.9985, L501.9520, L100.0100, L500.4050, L500.4100 #### [facility] [address] [place], [address] Globulin (S) [Mass/Vol] 3.2 g/dL Normal 2.2-4.2 [facility] Comment on above: Performed By: #### L 506.1001, L3300.6900, L503.0106, L501.9985, L501.9520, L100.0100, L500.4050, L500.4100 #### [facility] [address] [place], [address] Glucose [Mass/Vol] 80 mg/dL Normal 70-99 [facility] Comment on above: Performed By: #### L 506.1001, L3300.6900, L503.0106, L501.9985, L501.9520, L100.0100, L500.4050, L500.4100 #### [facility] [address] [place], [address] Potassium [Moles/Vol] 4.3 mmol/L Normal 3.3-5.1 [facility] Comment on above: Performed By: #### L 506.1001, L3300.6900, L503.0106, L501.9985, L501.9520, L100.0100, L500.4050, L500.4100 #### [facility] [address] [place], [address] Sodium [Moles/Vol] 136 mmol/L Normal 133-145 [facility] Comment on above: Performed By: #### L 506.1001, [id number], L503.0106, L501.9985, L501.9520, L100.0100, L500.4050, L500.4100 #### [facility] [address] [place], [place], [id number] T PROT 7.7 g/dL Normal 5.9-8.4 [facility] Comment on above: Performed By: #### L 506.1001, [id number], L503.0106, L501.9985, L501.9520, L100.0100, L500.4050, L500.4100 #### [facility] [address] [place], [place], [id number] Urea nitrogen [Mass/Vol] 20 mg/dL High 4-19 [facility] Comment on above: Performed By: #### L 506.1001, [id number], L503.0106, L501.9985, L501.9520, L100.0100, L500.4050, L500.4100 #### [facility] [address] [place], [place], [id number] Eosinophil percentageOrdered By: Justin Guadarrama on 11-16-2024 Eosinophils/100 WBC (Bld) 2.4 % 0-5 [facility] Erythrocyte distribution wid th ratioOrdered By: Justin Guadarrama on 11-16-2024 Erythrocyte distribution width (RBC) [Ratio] 12.7 % 11.6-14.6 [facility] Erythrocyte distribution wid th standard deviationOrdered By: Justin Guadarrama on 11-16-2024 Erythrocyte distribution width (RBC) [Ratio] 42.1 fl 35.1-43.9 [facility] Glomerular filtration rate ( GFR) estimation/1.73 sq m using serum, plasma, or whole bOrdered By: Justin Guadarrama on 11-16-2024 GFR/1.73 sq M.predicted among non-blacks MDRD (S/P/Bld) [Vol rate/Area] 96 mL/min/{1.73_m2} >60 [facility] Comment on above: mL/min/1.73m2 CKD-EP I Creatinine Equation (2020) Hematocrit Auto (Bld) [Volum e fraction]Ordered By: Justin Guadarrama on 11-16-2024 Hematocrit (Bld) [Volume fraction] 40.1 % 37-47 [facility] Hemoglobin A1con 11-16-2024 HbA1c (Bld) [Mass fraction] 5.2 % Normal <=5.6 [facility] Comment on above: Result Comment: Norm al < 5.7 % Prediabetic 5.7 - 6.4 % Diabetic >or= 6.5 % Please note range changes. Performed By: #### L 506.1001, L3300.6900, L503.0106, L501.9985, L501.9520, L100.0100, L500.4050, L500.4100 #### [facility] [address] [place], [address] Hemoglobin A1c percentageOrd ered By: Justin Guadarrama on 11-16-2024 HbA1c (Bld) [Mass fraction] 5.2 % <5.7 [facility] Comment on above: Normal < 5.7 % Predi abetic 5.7 - 6.4 % Diabetic >or= 6.5 % Please note range changes. Hemoglobin measurementOrdere d By: Justin Guadarrama on 11-16-2024 Hemoglobin (Bld) [Mass/Vol] 13.5 g/dL 12.0-15.0 [facility] Immature granulocytes/100 WB C Auto (Bld)Ordered By: Justin Guadarrama on 11-16-2024 Immature granulocytes/100 WBC (Bld) 0.200 % 0.0-0.9 [facility] Comment on above: IG% - Immature Granu locytes (promyelocytes, myelocytes and metamyelocytes) > 1% indicates that a LEFT SHIFT is Present. LDL calc ser/plasOrdered By: Justin Guadarrama on 11-16-2024 Cholesterol in LDL [Mass/Vol] 104 mg/dL [facility] Comment on above: Wuscuaredd=218-863 m g/dL & Higher Xynn=001 mg/dL or greater Laboratory - Chemistry and C hemistry - challengeOrdered By: Justin Guadarrama on 11-16-2024 AST [Catalytic activity/Vol] 27 U/L <32 [facility] Lipid Profileon 11-16-2024 CHOL:HDL 2.59 Normal [facility] Comment on above: Performed By: #### L 506.1001, [id number], L503.0106, L501.9985, L501.9520, L100.0100, L500.4050, L500.4100 #### [facility] [address] [place], [address] Cholesterol [Mass/Vol] 184 mg/dL Normal <=200 [facility] Comment on above: Result Comment: Chol esterol level, Desirable <200 mg/dL Borderline high cholesterol 200-239 mg/dL High cholesterol >=240 mg/dL Recommendations of the NCEP Adult Treatment Panel for the following risk-cutoff thresholds for the [place] population. Performed By: #### L 506.1001, [id number], L503.0106, L501.9985, L501.9520, L100.0100, L500.4050, L500.4100 #### [facility] [address] [place], [address] Cholesterol in HDL [Mass/Vol] 71 mg/dL Normal [facility] Comment on above: Result Comment: Bette onal Cholesterol Education Program (NCEP) guidelines: <40 mg/dL: Low HDL-cholesterol (major risk factor for CHD) >= 60 mg/dL: High HDL-cholesterol (negative risk factor for CHD) HDL-cholesterol is affected by a number of factors, e.g. smoking, exercise, hormones, sex and age. Performed By: #### L 506.1001, [id number], L503.0106, L501.9985, L501.9520, L100.0100, L500.4050, L500.4100 #### [facility] [address] [place], [address] Cholesterol in LDL [Mass/Vol] 104 mg/dL Normal [facility] Comment on above: Result Comment: Bord hzfzbi=353-640 mg/dL Higher Uloq=653 mg/dL or greater Performed By: #### L 506.1001, [id number], L503.0106, L501.9985, L501.9520, L100.0100, L500.4050, L500.4100 #### [facility] [address] [place], [address] Cholesterol in VLDL [Mass/Vol] 9 mg/dL Normal 5-40 [facility] Comment on above: Performed By: #### L 506.1001, [id number], L503.0106, L501.9985, L501.9520, L100.0100, L500.4050, L500.4100 #### [facility] [address] [place], [address] Triglyceride [Mass/Vol] 45 mg/dL Normal [facility] Comment on above: Result Comment: The drugs N-Acetylcysteine and Metamizole may falsely depress this assay. Normal range: <150 mg/dL Borderline High: 150-199 mg/dL High: 200-499 mg/dL Very High: >500 mg/dL Performed By: #### L 506.1001, [id number], L503.0106, L501.9985, L501.9520, L100.0100, L500.4050, L500.4100 #### [facility] [address] [place], [address] MCV (mean corpuscular volume ) determinationOrdered By: Justin Guadarrama on 11-16-2024 MCV (RBC) [Entitic vol] 90.3 fL 81-99 [facility] Mean corpuscular hemoglobin (MCH) determinationOrdered By: Justin Guadarrama on 11-16-2024 MCH (RBC) [Entitic mass] 30.4 pg 27.0-32.0 [facility] Mean corpuscular hemoglobin concentration (MCHC) determinationOrdered By: Justin Guadarrama on 11-16-2024 MCHC (RBC) [Mass/Vol] 33.7 g/dL 32-36 [facility] Mean platelet volume determi nationOrdered By: Justin Guadarrama on 11-16-2024 Platelet mean volume (Bld) [Entitic vol] 9.4 fL 6.2-12.0 [facility] Monocyte percentageOrdered B y: Justin Guadarrama on 11-16-2024 Monocytes/100 WBC (Bld) 9.9 % 0-10 [facility] Neutrophil percentageOrdered By: Justin Guadarrama on 11-16-2024 Neutrophils/100 WBC (Bld) 54.4 % 47-70 [facility] Nucleated red blood cell per centageOrdered By: Justin Guadarrama on 11-16-2024 Nucleated RBC/100 WBC (Bld) [Ratio] 0 % 0-5 [facility] Platelet countOrdered By: Tania Guadarrama on 11-16-2024 Platelets (Bld) [#/Vol] 294 10*3/uL 150-450 [facility] Potassium measurement (mass/ volume)Ordered By: Justin Guadarrama on 11-16-2024 Potassium (Unsp spec) [Mass/Vol] 4.3 mmol/L 3.3-5.1 [facility] RBC Auto (Bld) [#/Vol]Ordere d By: Justin Guadarrama on 11-16-2024 RBC (Bld) [#/Vol] 4.44 10*6/uL 4.2-5.4 [facility] Screening total cholesterol/ high density lipoprotein (HDL) cholesterol ratioOrdered By: Justin Guadarrama on 11-16-2024 Cholesterol.total/Cholest solomon in HDL [Mass ratio] 2.59 {ratio} [facility] Serum creatinine measurement (mass/volume)Ordered By: Justin Guadarrama on 11-16-2024 Creatinine [Mass/Vol] 0.82 mg/dL 0.70-1.20 [facility] Serum globulin measurementOr dered By: Justin Guadarrama on 11-16-2024 Globulin (S) [Mass/Vol] 3.2 g/dL 2.2-4.2 [facility] Serum glucose measurement (m ass/volume)Ordered By: Justin Guadarrama on 11-16-2024 Glucose [Mass/Vol] 80 mg/dL 70-99 [facility] Serum or plasma alanine bedoya otransferase (ALT) measurementOrdered By: Justin Guadarrama on 11-16-2024 ALT [Catalytic activity/Vol] 31 U/L <35 [facility] Serum or plasma albumin maurilio urement (mass/volume)Ordered By: Justin Guadarrama on 11-16-2024 Albumin [Mass/Vol] 4.4 g/dL 3.5-5.0 [facility] Serum or plasma albumin/glob ulin mass ratioOrdered By: Justin Guadarrama on 11-16-2024 Albumin/Globulin [Mass ratio] 1.4 {ratio} 0.9-2.4 [facility] Serum or plasma alkaline greyson sphatase measurementOrdered By: Justin Guadarrama on 11-16-2024 ALP [Catalytic activity/Vol] 73 U/L 35-104 [facility] Serum or plasma calcium maurilio urement (mass/volume)Ordered By: Justin Guadarrama on 11-16-2024 Calcium [Mass/Vol] 9.4 mg/dL 7.6-11.0 [facility] Serum or plasma cholesterol in HDL measurement (mass/volume)Ordered By: Justin Guadarrama on 11-16-2024 Cholesterol in HDL [Mass/Vol] 71 mg/dL >40 [facility] Comment on above: National Cholesterol Education Program (NCEP) guidelines:<40 mg/dL: Low HDL-cholesterol (major risk factor for CHD)>= 60 mg/dL: High HDL-cholesterol (negative risk factor for CHD)HDL-cholesterol is affected by a number of factors, e.g. smoking, exercise, hormones, sex and age. Serum or plasma cholesterol measurement (mass/volume)Ordered By: Justin Guadarrama on 11-16-2024 Cholesterol [Mass/Vol] 184 mg/dL <201 [facility] Comment on above: Cholesterol level, D esirable <200 mg/dLBorderline high cholesterol 200-239 mg/dLHigh cholesterol >=240 mg/dLRecommendations of the NCEP Adult Treatment Panel for the following risk-cutoff thresholds for the [place] population. Serum or plasma thyroperoxid ase antibody assay (units/volume)Ordered By: Justin Guadarrama on 11-16-2024 TPO Ab Qn [IU]/mL 0-34 [facility] Comment on above: Performed at: [address] [id number] Director: Felix Buckner PhD, Phone: [phone] Serum or plasma urea nitroge n measurement (mass/volume)Ordered By: Justin Guadarrama on 11-16-2024 Urea nitrogen [Mass/Vol] 20 mg/dL High 4-19 [facility] Sodium levelOrdered By: Justin Guadarrama on 11-16-2024 Sodium [Moles/Vol] 136 mmol/L 133-145 [facility] TSH DL <= 0.005 mIU/L QnOrde red By: Justin Guadarrama on 11-16-2024 TSH Qn 2.270 uIU/mL 0.300-4.200 [facility] Thyroid Stim Hormone (TSH)on 11-16-2024 TSH 2.270 uIU/mL Normal 0.300-4.200 [facility] Comment on above: Performed By: #### L 506.1001, L3300.6900, L503.0106, L501.9985, L501.9520, L100.0100, L500.4050, L500.4100 #### [facility] [address] [place], [place], [id number] Total proteinOrdered By: Amberly delisa Chiara on 11-16-2024 Protein [Mass/Vol] 7.7 g/dL 5.9-8.4 [facility] Triglycerides measurementOrd ered By: Justin Guadarrama on 11-16-2024 Triglyceride [Mass/Vol] 45 mg/dL <199 [facility] Comment on above: The drugs N-Acetylcy steine and Metamizole may falsely depress this assay. Normal range: <150 mg/dLBorderline High: 150-199 mg/dLHigh: 200-499 mg/dLVery High: >500 mg/dL Vitamin B12on 11-16-2024 Cobalamin (Vitamin B12) [Mass/Vol] 456 pg/mL Normal 180-914 [facility] Comment on above: Performed By: #### L 506.1001, L3300.6900, L503.0106, L501.9985, L501.9520, L100.0100, L500.4050, L500.4100 #### [facility] [address] [place], [place], [id number] Vitamin B12 ser/plasOrdered By: Justin Guadarrama on 11-16-2024 Cobalamin (Vitamin B12) [Mass/Vol] 456 pg/mL 180-914 [facility] Vitamin D,25 Hydroxyon 11-16 Vitamin D 25-OH 32.2 ng/mL Normal 30-100 [facility] Comment on above: Result Comment: Cecilia min D Status Deficiency: <20 ng/mL (50nmol/L) Insufficiency: 20-30 ng/mL (50-75 nmol/L) Sufficiency: 30-100 ng/mL (75-250 nmol/L) Toxicity: >100 ng/mL (>250 nmol/L) Performed By: #### L 506.1001, L3300.6900, L503.0106, L501.9985, L501.9520, L100.0100, L500.4050, L500.4100 #### [facility] [address] [place], [place], [id number] White blood cell (WBC) count Ordered By: Justin Guadarrama on 11-16-2024 WBC (Bld) [#/Vol] 5.7 10*3/uL 4.4-11.0 [facility] CNCOon 11-23-2022 CNCO Letter Text Normal [facility] CNOVon 11-23-2022 CNOV Office Visit (UCWSTR) -------- KEISHA VELASQUEZ ([id number]) 1990 F Date Time Provider Department 11/23/22 9:30 AM [facility] During your visit today, we recorded the following information about you: Temperature Pulse Respiration Blood pressure 97.4 degrees 90/minute 16/minute 112/66 Weight 64.4 kg Luisana Liriano APRN.[employer] 11/23/2022 10:09 AM Signed Subjective Sore Throat Associated symptoms include congestion and coughing. Pertinent negatives include no diarrhea, ear pain, shortness of breath or vomiting. Keisha Velasquez is a 32 year old female who presents with sore throat and runny nose and occasional cough for 4 days. She had a day where she felt nauseated. She took a COVID test at home which was negative. She has not had a fever. Her was sick with similar symptoms recently. Review of Systems Constitutional: Negative for chills and fever. HENT: Positive for congestion and sore throat. Negative for ear pain. Respiratory: Positive for cough. Negative for shortness of breath. Cardiovascular: Negative. Gastrointestinal: Positive for nausea. Negative for diarrhea and vomiting. Musculoskeletal: Negative for myalgias. BP 112/66 Pulse 90 Temp 36.3 ?C (97.4 ?F) Resp 16 Wt 64.4 kg (142 lb) LMP 10/25/2015 SpO2 97% PAST MEDICAL HISTORY Diagnosis Date Acne Generalized anxiety disorder PAST SURGICAL HISTORY Procedure Laterality Date DELIVERY ONLY , low transverse ALLERGIES Patient has no known allergies. MEDICATIONS spironolactone (ALDACTONE) 50 mg tablet Take 50 mg by mouth twice daily. FAMILY HISTORY Problem Relation Age of Onset Thyroid Mother Cancer Maternal Aunt thyroid carcinoma Breast Cancer Other Great grandma/maternal Lipids Maternal Grandfather Psychiatry Father depression Psychiatry Paternal Grandmother depression Social History Tobacco Use Smoking status: Never Smokeless tobacco: Never Substance Use Topics Alcohol use: No Drug use: No Objective Physical Exam Vitals and nursing note reviewed. HENT: Right Ear: Tympanic membrane, ear canal and external ear normal. Left Ear: Tympanic membrane, ear canal and external ear normal. Nose: Congestion and rhinorrhea present. Mouth/Throat: Mouth: Mucous membranes are moist. Pharynx: Uvula midline. Posterior oropharyngeal erythema present. No oropharyngeal exudate. Cardiovascular: Rate and Rhythm: Normal rate and regular rhythm. Heart sounds: Normal heart sounds. Pulmonary: Effort: Pulmonary effort is normal. No respiratory distress. Breath sounds: Normal breath sounds. No wheezing or rales. Musculoskeletal: Cervical back: Neck supple. Lymphadenopathy: Cervical: No cervical adenopathy. Skin: General: Skin is warm and dry. Findings: No erythema or rash. Neurological: Mental Status: She is alert. ASSESSMENT/PLAN: 1. Sore throat - ICD9: 462, ICD10: J02.9 - suspect viral - Alere Strep Test negative, no culture pending - Discussed supportive care treatment with fluids, rest and analgesia. - STREP A MOLECULAR (POC) 2. Viral URI with cough - ICD9: 465.9, ICD10: J06.9 - Discussed viral etiology and rationale for treatment. - Symptomatic treatment with prn analgesia - Supportive care with fluids and rest - Follow-up with your PCP in 3-5 days if symptoms have not improved or sooner if symptoms worsen - Discussed red flags and need for immediate medical evaluation if any occur. - Discussed supportive care treatment with fluids, rest and analgesia. - Discussed expected course of illness NEVA Noland APRN.CNP 11/23/2022 10:08 AM Addendum ASSESSMENT/PLAN: 1. Sore throat - ICD9: 462, ICD10: J02.9 - suspect viral - Alere Strep Test negative, no culture pending - Discussed supportive care treatment with fluids, rest and analgesia. - STREP A MOLECULAR (POC) 2. Viral URI with cough - ICD9: 465.9, ICD10: J06.9 - Discussed viral etiology and rationale for treatment. - Symptomatic treatment with prn analgesia - Supportive care with fluids and rest - Follow-up with your PCP in 3-5 days if symptoms have not improved or sooner if symptoms worsen - Discussed red flags and need for immediate medical evaluation if any occur. - Discussed supportive care treatment with fluids, rest and analgesia. - Discussed expected course of illness Luisana Liriano APRN.CNP Treatment for Viral Upper Respiratory Tract Infections Your body will kill off the virus by itself. Additionally, you can prime your body's immune system. This may help you get better more quickly. Drink lots of fluids Make sure you are eating well Get plenty of rest We do not have any medications that kill off these viruses. Antibiotics are used to treat bacterial infections; however, they are not active against viral infections. (more content not included)... Normal [facility] STREP A MOLECULAR (POC)on Procedural Control Valid [facility] Strep A (POCT) Negative Negative [facility] Absolute lymphocyte countOrd ered By: Justin Guadarrama on 11-07-2022 Lymphocytes Auto (Unsp spec) [#/Vol] 1.85 10*3/uL 0.83-4.51 [facility] Basophil percentageOrdered B y: Justin Guadarrama on 11-07-2022 Basophils/100 WBC (Bld) 0.6 % 0-1 [facility] Bilirubin [Mass/Vol] 0.50 mg/dL 0.20-1.00 [facility] Comment on above: For patients on eltr ombopag therapy, use of Dimension [place] TBIL is not recommended. Chloride [Moles/Vol] 107 mmol/L 98-107 [facility] Cholesterol [Mass/Vol] 127 mg/dL <200 [facility] Comment on above: <200 mg/dL Desirable 200-240 mg/dL Borderline >240 mg/dL High Risk Eosinophils/100 WBC (Bld) 2.1 % 0-5 [facility] Glucose [Mass/Vol] 80 mg/dL 74-106 [facility] Neutrophils (Bld) [#/Vol] 2.3 10*3/uL 2.0-7.7 [facility] Neutrophils/100 WBC (Bld) 49.2 % 47-70 [facility] Potassium [Moles/Vol] 3.9 mmol/L 3.5-5.1 [facility] Protein [Mass/Vol] 7.3 g/dL 6.4-8.2 [facility] Sodium [Moles/Vol] 139 mmol/L 136-145 [facility] Triglyceride [Mass/Vol] 32 mg/dL <199 [facility] Comment on above: The drugs N-Acetylcy steine and Metamizole may falsely depress this assay.Serum Triglycerides Reference Interval Normal <150 mg/dL Borderline high 150 - 199 mg/dL High 200 - 499 mg/dL Very High > or = 500 mg/dL WBC (Bld) [#/Vol] 4.7 10*3/uL 4.4-11.0 [facility] Blood erythrocytes count (nu mber/volume)Ordered By: Justin Guadarrama on 11-07-2022 RBC (Bld) [#/Vol] 4.24 10*6/uL 4.2-5.4 [facility] Blood hemoglobin measurement (mass/volume)Ordered By: Justin Guadarrama on 11-07-2022 Hemoglobin (Bld) [Mass/Vol] 12.9 g/dL 12.0-15.0 [facility] Blood lymphocytes/100 leukoc ytesOrdered By: Justin Guadarrama on 11-07-2022 Lymphocytes/100 WBC (Bld) 39.7 % 19-41 [facility] Blood monocytes/100 leukocyt esOrdered By: Justin Guadarrama on 11-07-2022 Monocytes/100 WBC (Bld) 8.2 % 0-10 [facility] Blood platelet mean volumeOr dered By: Justin Guadarrama on 11-07-2022 Platelet mean volume (Bld) [Entitic vol] 10.1 fL 6.2-12.0 [facility] Determination of erythrocyte mean corpuscular volume (MCV)Ordered By: Justin Guadarrama on 11-07-2022 MCV (RBC) [Entitic vol] 95.0 fL 81-99 [facility] Hematocrit Auto (Bld) [Volum e fraction]Ordered By: Justin Guadarrama on 11-07-2022 Hematocrit (Bld) [Volume fraction] 40.3 % 37-47 [facility] Laboratory - Chemistry and C hemistry - challengeOrdered By: Justin Guadarrama on 11-07-2022 ALP [Catalytic activity/Vol] 65 U/L 45-117 [facility] ALT [Catalytic activity/Vol] 17 U/L 13-56 [facility] CO2 [Moles/Vol] 27.0 mmol/L 21.0-32.0 [facility] Cobalamin (Vitamin B12) [Mass/Vol] 284 pg/mL 211-911 [facility] Globulin (S) [Mass/Vol] 3.4 g/dL 2.2-4.2 [facility] Urea nitrogen/Creatinine [Mass ratio] 13.1 mg/mg 10-20 [facility] Laboratory - Hematology and Cell countsOrdered By: Justin Guadarrama on 11-07-2022 Erythrocyte distribution width (RBC) [Entitic vol] 43.5 fL 35.1-43.9 [facility] Erythrocyte distribution width (RBC) [Ratio] 12.6 % 11.6-14.6 [facility] Immature granulocytes/100 WBC (Bld) 0.200 % 0.0-0.9 [facility] Comment on above: IG% - Immature Granu locytes (promyelocytes, myelocytes and metamyelocytes) > 1% indicates that a LEFT SHIFT is Present. MCH (RBC) [Entitic mass] 30.4 pg 27.0-32.0 [facility] Nucleated RBC/100 WBC (Bld) [Ratio] 0 % 0-5 [facility] MCHC Auto (RBC) [Mass/Vol]Or dered By: Justin Guadarrama on 11-07-2022 MCHC (RBC) [Mass/Vol] 32.0 g/dL 32-36 [facility] No Panel InformationOrdered By: Justin Guadarrama on 11-07-2022 Estimated GFR (MDRD) Amer 100 mL/min >60 [facility] Comment on above: GFR Calc Estimated GFR (MDRD) Non-Af Amer 83 mL/min >60 [facility] Comment on above: Non- GFR Calc Thyroid Stimulating Hormone (TSH) 2.21 uIU/mL 0.358-3.74 [facility] Vitamin D 25-Hydroxy 34.8 ng/mL [facility] Comment on above: Vitamin D 25(OH) Sta tus Range Deficiency <20 ng/mL (50nmol/L) Insufficiency 20 - 30 ng/mL (50 - 75 nmol/L) Sufficiency 30 - 100 ng/mL (75 - 250 nmol/L) Toxicity >100 ng/mL (>250 nmol/L) Platelets bldOrdered By: Amberly Guadarrama on 11-07-2022 Platelets (Bld) [#/Vol] 283 10*3/uL 150-450 [facility] Serum or plasma albumin maurilio urement (mass/volume)Ordered By: Justin Guadarrama on 11-07-2022 Albumin [Mass/Vol] 3.9 g/dL 3.2-5.0 [facility] Serum or plasma albumin/glob ulin mass ratioOrdered By: Justin Guadarrama on 11-07-2022 Albumin/Globulin [Mass ratio] 1.1 {ratio} 0.9-2.4 [facility] Serum or plasma calcium maurilio urement (mass/volume)Ordered By: Justin Guadarrama on 11-07-2022 Calcium [Mass/Vol] 8.9 mg/dL 8.5-10.1 [facility] Serum or plasma cholesterol in HDL measurement (mass/volume)Ordered By: Jutsin Guadarrama on 11-07-2022 Cholesterol in HDL [Mass/Vol] 69 mg/dL >40 [facility] Comment on above: The drugs N-Acetylcy steine and Metamizole may falsely depress this assay. Reference Range HDL <40 mg/dL Low HDL Cholesterol HDL >or= 60 mg/dL High HDL Cholesterol Serum or plasma cholesterol in VLDL measurement (mass/volume)Ordered By: Justin Guadarrama on 11-07-2022 Cholesterol in VLDL [Mass/Vol] 6 mg/dL 5-40 [facility] Serum or plasma creatinine m easurement (mass/volume)Ordered By: Justin Guadarrama on 11-07-2022 Creatinine [Mass/Vol] 0.84 mg/dL 0.55-1.02 [facility] Comment on above: The validity of the calculated GFR & GFRAA in patients over 70 years has not been determined. Clinical correlation is essential. Serum or plasma low density lipoprotein (LDL) cholesterol measurement (mass/volume)Ordered By: Justin Guadarrama on 11-07-2022 Cholesterol in LDL [Mass/Vol] 52 mg/dL 0-130 [facility] Serum or plasma urea nitroge n measurement (mass/volume)Ordered By: Justin Guadarrama on 11-07-2022 Urea nitrogen [Mass/Vol] 11 mg/dL 7-18 [facility] Thin prep Papanicolaou smear with manual screeningOrdered By: Justin Guadarrama on 11-07-2022 Thin prep Papanicolaou smear with manual screening 12 U/L 15-37 [facility] Thin prep Papanicolaou smear with manual screening 5 5-15 [facility] Absolute lymphocyte counton 10-18-2021 Lymphocytes Auto (Unsp spec) [#/Vol] 2.00 10*3/uL 0.83-4.51 [facility] Work Phone: Basophil percentageon 2021 Basophils/100 WBC (Bld) 0.5 % 0-1 [facility] Work Phone: Bilirubin [Mass/Vol] 0.50 mg/dL 0.20-1.00 [facility] Work Phone: Comment on above: For patients on eltr ombopag therapy, use of Dimension [place] TBIL is not recommended. Chloride [Moles/Vol] 103 mmol/L 98-107 [facility]: [phone] Cholesterol [Mass/Vol] 138 mg/dL <200 [facility] Work Phone: [phone] Comment on above: <200 mg/dL Desirable 200-240 mg/dL Borderline >240 mg/dL High Risk Eosinophils/100 WBC (Bld) 1.8 % 0-5 [facility] Work Phone: Glucose [Mass/Vol] 81 mg/dL 74-106 [facility] Work Phone: [phone] Neutrophils (Bld) [#/Vol] 3.0 10*3/uL 2.0-7.7 [facility] Work Phone: [phone] Neutrophils/100 WBC (Bld) 53.3 % 47-70 [facility] Work Phone: [phone] Potassium [Moles/Vol] 4.4 mmol/L 3.5-5.1 [facility] Work Phone: [phone] Protein [Mass/Vol] 7.8 g/dL 6.4-8.2 [facility] Work Phone: [phone] Sodium [Moles/Vol] 136 mmol/L 136-145 [facility] Work Phone: [phone] Triglyceride [Mass/Vol] 33 mg/dL [facility] Work Phone: [phone] Comment on above: The drugs N-Acetylcy steine and Metamizole may falsely depress this assay.Serum Triglycerides Reference Interval Normal <150 mg/dL Borderline high 150 - 199 mg/dL High 200 - 499 mg/dL Very High > or = 500 mg/dL WBC (Bld) [#/Vol] 5.7 10*3/uL 4.4-11.0 [facility] Work Phone: Blood erythrocytes count (nu mber/volume)on 10-18-2021 RBC (Bld) [#/Vol] 4.28 10*6/uL 4.2-[facility]: Blood hemoglobin measurement (mass/volume)on 10-18-2021 Hemoglobin (Bld) [Mass/Vol] 13.0 g/dL 12.0-15.0 [facility] Work Phone: Blood lymphocytes/100 leukoc yteson 10-18-2021 Lymphocytes/100 WBC (Bld) 35.3 % 19-41 [facility] Work Phone: Blood monocytes/100 leukocyt eson 10-18-2021 Monocytes/100 WBC (Bld) 8.7 % 0-10 [facility] Work Phone: Blood platelet mean volumeon 10-18-2021 Platelet mean volume (Bld) [Entitic vol] 9.7 fL 6.2-12.0 [facility] Work Phone: Determination of erythrocyte mean corpuscular volume (MCV)on 10-18-2021 MCV (RBC) [Entitic vol] 93.0 fL 81-99 [facility] Work Phone: Hematocrit Auto (Bld) [Volum e fraction]on 10-18-2021 Hematocrit (Bld) [Volume fraction] 39.8 % 37-47 [facility] Work Phone: Laboratory - Chemistry and C hemistry - challengeon 10-18-2021 ALP [Catalytic activity/Vol] 59 U/L 45-117 [facility] Work Phone: ALT [Catalytic activity/Vol] 23 U/L 13-56 [facility] Work Phone: CO2 [Moles/Vol] 27.0 mmol/L 21.0-32.0 [facility] Work Phone: Globulin (S) [Mass/Vol] 3.9 g/dL 2.2-4.2 [facility] Work Phone: Urea nitrogen/Creatinine [Mass ratio] 15.2 mg/mg 10-20 [facility] Work Phone: Laboratory - Hematology and Cell countson 10-18-2021 Erythrocyte distribution width (RBC) [Entitic vol] 43.3 fL 35.1-43.9 [facility] Work Phone: Erythrocyte distribution width (RBC) [Ratio] 12.6 % 11.6-14.6 [facility] Work Phone: Immature granulocytes/100 WBC (Bld) 0.400 % 0.0-0.9 [facility] Work Phone: Comment on above: IG% - Immature Granu locytes (promyelocytes, myelocytes and metamyelocytes) > 1% indicates that a LEFT SHIFT is Present. MCH (RBC) [Entitic mass] 30.4 pg 27.0-32.0 [facility] Work Phone: Nucleated RBC/100 WBC (Bld) [Ratio] 0 % 0-5 [facility] Work Phone: MCHC Auto (RBC) [Mass/Vol]on 10-18-2021 MCHC (RBC) [Mass/Vol] 32.7 g/dL 32-36 [facility] Work Phone: No Panel Informationon 10-18 Estimated GFR (MDRD) Amer 99 mL/min >60 [facility] Work Phone: Comment on above: GFR Calc Estimated GFR (MDRD) Non-Af Amer 82 mL/min >60 [facility] Work Phone: Comment on above: Non- GFR Calc Thyroid Stimulating Hormone (TSH) 1.95 uIU/mL 0.358-3.74 [facility] Work Phone: Platelets bldon 10-18-2021 Platelets (Bld) [#/Vol] 264 10*3/uL 150-450 [facility] Work Phone: Serum or plasma albumin maurilio urement (mass/volume)on 10-18-2021 Albumin [Mass/Vol] 3.9 g/dL 3.2-5.0 [facility] Work Phone: Serum or plasma albumin/glob ulin mass ratioon 10-18-2021 Albumin/Globulin [Mass ratio] 1.0 {ratio} 0.9-2.4 [facility] Work Phone: Serum or plasma calcium maurilio urement (mass/volume)on 10-18-2021 Calcium [Mass/Vol] 8.9 mg/dL 8.5-10.1 [facility] Work Phone: Serum or plasma cholesterol in HDL measurement (mass/volume)on 10-18-2021 Cholesterol in HDL [Mass/Vol] 71 mg/dL [facility] Work Phone: Comment on above: The drugs N-Acetylcy steine and Metamizole may falsely depress this assay. Reference Range HDL <40 mg/dL Low HDL Cholesterol HDL >or= 60 mg/dL High HDL Cholesterol Serum or plasma cholesterol in VLDL measurement (mass/volume)on 10-18-2021 Cholesterol in VLDL [Mass/Vol] 7 mg/dL 5-40 [facility] Work Phone: Serum or plasma creatinine m easurement (mass/volume)on 10-18-2021 Creatinine [Mass/Vol] 0.86 mg/dL 0.55-1.02 [facility] Work Phone: Comment on above: The validity of the calculated GFR & GFRAA in patients over 70 years has not been determined. Clinical correlation is essential. Serum or plasma low density lipoprotein (LDL) cholesterol measurement (mass/volume)on 10-18-2021 Cholesterol in LDL [Mass/Vol] 60 mg/dL 0-130 [facility] Work Phone: Serum or plasma urea nitroge n measurement (mass/volume)on 10-18-2021 Urea nitrogen [Mass/Vol] 13 mg/dL 7-18 [facility] Work Phone: Thin prep Papanicolaou smear with manual screeningon 10-18-2021 Thin prep Papanicolaou smear with manual screening 12 U/L 15-37 [facility] Work Phone: Thin prep Papanicolaou smear with manual screening 6 5-15 [facility] Work Phone: Vital Signs Date Time Vital Sign Value Performing Clinician Facility 11-23-2022 09:33-0400 Body temperature 97.39 [degF] Luisana Praisler-Wood FILM COMPOSER.[employer] Work Phone: [facility] 11-23-2022 09:33-0400 Body weight 64.41 kg Luisana Praisler-Wood FILM COMPOSER.[employer] Work Phone: [facility] 11-23-2022 09:33-0400 Diastolic blood pressure 66 mm[Hg] Luisana Praisler-Wood FILM COMPOSER.[employer] Work Phone: [facility] 11-23-2022 09:33-0400 Heart rate 90 /min Luisana Praisler-Wood FILM COMPOSER.[employer] Work Phone: [facility] 11-23-2022 09:33-0400 Respiratory rate 16 /min Luisana Praisler-Wood FILM COMPOSER.[employer] Work Phone: [facility] 11-23-2022 09:33-0400 SaO2% (BldA) [Mass fraction] 97 % Luisana Praisler-Wood FILM COMPOSER.[employer] Work Phone: [facility] 11-23-2022 09:33-0400 Systolic blood pressure 112 mm[Hg] Luisana Praisler-Wood FILM COMPOSER.[employer] Work Phone: [facility] 11-07-2022 09:24-0400 Body height 165.[address] Santana Pa Work Phone: [facility] 11-07-2022 09:24-0400 Body mass index (BMI) [Ratio] 23.4 kg/m2 Dr. Santana Pa Work Phone: [facility] 11-07-2022 09:24-0400 Body temperature 98 [degF] Dr. Santana Pa Work Phone: [facility] 11-07-2022 09:24-0400 Body weight 63.[address] Santana Pa Work Phone: [facility] 11-07-2022 09:24-0400 Diastolic blood pressure 68 mm[Hg] Dr. Santana Pa Work Phone: [facility] 11-07-2022 09:24-0400 Heart rate 70 /min Dr. Santana Pa Work Phone: [facility] 11-07-2022 09:24-0400 Respiratory rate 16 /min Dr. Santana Pa Work Phone: [facility] 11-07-2022 09:24-0400 SaO2% (BldA) [Mass fraction] 99 % Dr. Santana Pa Work Phone: [facility] 11-07-2022 09:24-0400 Systolic blood pressure 104 mm[Hg] Dr. Santana Pa Work Phone: [facility] 10-18-2021 10:04-0400 Body height 165.[address] Santana Pa Work Phone: [facility] Work Phone: 10-18-2021 10:04-0400 Body mass index (BMI) [Ratio] 22 kg/m2 Dr. Santana Pa Work Phone: [facility] Work Phone: 10-18-2021 10:04-0400 Body temperature 97.6 [degF] Dr. Santana Pa Work Phone: [facility] Work Phone: 10-18-2021 10:04-0400 Body weight 59.[address] Santana Pa Work Phone: [facility] Work Phone: 10-18-2021 10:04-0400 Diastolic blood pressure 68 mm[Hg] Dr. Santana Pa Work Phone: [facility] Work Phone: 10-18-2021 10:04-0400 Heart rate 69 /min Dr. Santana Pa Work Phone: [facility] Work Phone: 10-18-2021 10:04-0400 Respiratory rate 16 /min Dr. Santana Pa Work Phone: [facility] Work Phone: 10-18-2021 10:04-0400 SaO2% (BldA) [Mass fraction] 99 % Dr. Santana Pa Work Phone: [facility] Work Phone: 10-18-2021 10:04-0400 Systolic blood pressure 102 mm[Hg] Dr. Santana Pa Work Phone: [facility] Work Phone: Encounters Encounter Date Encounter Type Care Provider Facility Start: 11-16-2024 End: 11-16-2024 ambulatory Justin Guadarrama RICE FARMER-C Work Phone: -[facility] Start: 11-16-2024 End: 11-16-2024 Patient encounter procedure Justin Guadarrama [employer]ICE FARMER-C -[facility] Start: 11-16-2024 End: 11-16-2024 ambulatory Justin Guadarrama VSC Facility:[facility] Start: 11-23-2022 End: 11-23-2022 ambulatory Facility:[facility] Start: 11-23-2022 End: 11-23-2022 Patient encounter procedure Luisana Liriano APRN.CNP Work Phone: [facility] Comment on above: Sore throat (Primary Dx); Viral URI with cough Start: 11-07-2022 End: 11-07-[address] Santana Pa Work Phone: [facility] Work Phone: Start: 11-07-2022 End: 11-07-[address] Santana Pa Work Phone: [facility] Start: 10-18-2021 End: 10-18-[address] Santana Pa Work Phone: [facility] Procedures Date Procedure Procedure Detail Performing Clinician Start: 11-16-2024 Vitamin D, 25-hydrox y measurement Justin Guadarrama NP-C Work Phone: Comment on above: Vitamin D StatusDefi ciency: <20 ng/mL (50nmol/L)Insufficiency: 20-30 ng/mL (50-75 nmol/L)Sufficiency: 30-100 ng/mL (75-250 nmol/L)Toxicity: >100 ng/mL (>250 nmol/L) Start: 11-23-2022 STREP A MOLECULAR (POC) Linda Gamez PA-C Work Phone: Plan of Treatment Date Care Activity Detail Author Start: 01-16-2023 Influenza vaccination INFLUENZA (#1) [facility] Start: 05-18-2022 DEPRESSION ASSESSMENT DEPRESSION ASS ESSMENT [facility] Start: 06-24-2021 COVID-19 VACCINE (4 - Moderna series) COVID-19 VACCINE (4 - Moderna series) [facility] Start: 08-09-2019 HPV TESTING HPV TESTING [facility] Start: 01-25-2017 Urine microalbumin profile DTA P,TDAP,TD (8 - Td or Tdap) [facility] Start: 08-13-2007 HPV VACCINE (3 - 3-d ose series) HPV VACCINE (3 - 3-dose series) [facility] Start: 08-09-2007 HEPATITIS C SCREENING HEPATITIS C DOLLY VILLASENOR [facility] Start: 08-09-2007 HIV SCREEN[address] HIV SCRE[address] [facility] Immunizations Immunization Date Immunization Notes Care Provider Mateo issa 04-14-2007 hepatitis A vaccine, unspecified formulation Luisana Liriano APRN.CNP Work Phone: [facility] Work Phone: 04-14-2007 hepatitis B vaccine, pediatric or pediatric/adolescent dosage Luisana Aguilar-Mark FILM COMPOSER.[employer] WORK[employer] Work Phone: [facility] Work Phone: 04-14-2007 human papilloma viru s vaccine, quadrivalent Luisana Liriano FILM COMPOSER.[employer] WORK[employer] Work Phone: [facility] Work Phone: 01-25-2007 hepatitis B vaccine, pediatric or pediatric/adolescent dosage Luisana Aguilar-Mark FILM COMPOSER.[employer] WORK[employer] Work Phone: [facility] Work Phone: 01-25-2007 human papilloma viru s vaccine, quadrivalent Luisana Aguilar-Mark FILM COMPOSER.[facility] Work Phone: [facility] Work Phone: 01-25-2007 Meningococcal, MCV4, unspecified conjugate formulation(groups A, C, Y and W-135) Luisana Liriano APRN.[facility] Work Phone: [facility] Work Phone: 01-25-2007 tetanus toxoid, redu alana diphtheria toxoid, and acellular pertussis vaccine, adsorbed Luisana Liriano FILM COMPOSER.[facility] Work Phone: [facility] Work Phone: 01-24-2002 hepatitis B vaccine, pediatric or pediatric/adolescent dosage Luisana Liriano FILM COMPOSER.[facility] Work Phone: [facility] Work Phone: 01-24-2002 measles, mumps and rubella virus vaccine Luisana Aguilar-Mark FILM COMPOSER.[employer] Work Phone: [facility] Work Phone: 12-05-2000 diphtheria and tetan us toxoids, adsorbed for pediatric use Luisana Liriano FILM COMPOSER.[employer] WORK[employer] Work Phone: [facility] Work Phone: 01-13-1995 diphtheria, tetanus toxoids and acellular pertussis vaccine Luisana Praisler-Wood FILM COMPOSER.[employer] WORK[employer] Work Phone: [facility] Work Phone: 01-13-1995 poliovirus vaccine, inactivated Luisana Praisler-Wood FILM COMPOSER.[employer] WORK[employer] Work Phone: [facility] Work Phone: 12-15-1992 diphtheria, tetanus toxoids and acellular pertussis vaccine Luisana Praisler-Wood FILM COMPOSER.[facility] Work Phone: [facility] Work Phone: 12-15-1992 poliovirus vaccine, inactivated Luisana Praisler-Wood FILM COMPOSER.[facility] Work Phone: [facility] Work Phone: 12-18-1990 haemophilus influenz ae type b vaccine, HbOC conjugate Luisana Praisler-Wood FILM COMPOSER.[employer] WORK[employer] Work Phone: [facility] Work Phone: 12-18-1990 measles, mumps and rubella virus vaccine Luisana Praisler-Wood FILM COMPOSER.[employer] WORK[employer] Work Phone: [facility] Work Phone: 09-11-1990 haemophilus influenz ae type b vaccine, HbOC conjugate Luisana Praisler-Wood FILM COMPOSER.[facility] Work Phone: [facility] Work Phone: 06-09-1990 haemophilus influenz ae type b vaccine, HbOC conjugate Luisana Praisler-Wood FILM COMPOSER.[employer] WORK[employer] Work Phone: [facility] Work Phone: 02-12-1990 diphtheria, tetanus toxoids and acellular pertussis vaccine Luisana Praisler-Wood FILM COMPOSER.[employer] WORK[employer] Work Phone: [facility] Work Phone: 1989 diphtheria, tetanus toxoids and acellular pertussis vaccine Luisana Praisler-Wood FILM COMPOSER.[employer] WORK[employer] Work Phone: [facility] Work Phone: 1990 poliovirus vaccine, inactivated Luisana Praisler-Wood FILM COMPOSER.[employer] WORK[employer] Work Phone: [facility] Work Phone: 1990 diphtheria, tetanus toxoids and acellular pertussis vaccine Luisana Liriano FILM COMPOSER.[employer] WORK[employer] Work Phone: [facility] Work Phone: 1990 poliovirus vaccine, inactivated Luisana Liriano FILM COMPOSER.[facility] Work Phone: [facility] Work Phone: Payers Date Payer Category Payer Self-pay [id number] 2019 Unknown GISELLA CASTILLO NICOLE PPO [id number] 2019-Present [phone] [address] [place] [address] PPO [id number] 2016 [id number] 2016 [id number] 00 [id number] Unknown [id number] Unknown [id number] Social History Date Type Detail Facility Start: 10-18-2021 End: 11-07-2022 Tobacco smoking status WIIS Unknown if ever smoked [facility] Start: 1990 Sex Assigned At Female [facility] Start: 07-02-2020 End: 11-07-2022 Tobacco smoking status NHIS Never smoked tobacco [facility] Start: 07-02-2020 Tobacco use and exposure Smokeless tobacco non-user [facility] Start: 07-02-2020 Alcohol intake Current non-dr orthopedic designer of alcohol (finding) [facility] Start: 1990 Sex Assigned At Not on file [facility] Gender identity Not on file [facility] inic Progress note 11-23-2022 Note Date & Type Note Facility 11-23-2022 Note HNO ID: [id number] Author: Luisana Liriano APRN.[employer] Service: ? Author Type: Nurse Practitioner Type: Progress Notes Filed: 11/23/2022 10:09 AM Note Text: Subjective Sore Throat Associated symptoms include congestion and coughing. Pertinent negatives include no diarrhea, ear pain, shortness of breath or vomiting. Keisha Velasquez is a 32 year old female who presents with sore throat and runny nose and occasional cough for 4 days. She had a day where she felt nauseated. She took a COVID test at home which was negative. She has not had a fever. Her was sick with similar symptoms recently. Review of Systems Constitutional: Negative for chills and fever. HENT: Positive for congestion and sore throat. Negative for ear pain. Respiratory: Positive for cough. Negative for shortness of breath. Cardiovascular: Negative. Gastrointestinal: Positive for nausea. Negative for diarrhea and vomiting. Musculoskeletal: Negative for myalgias. BP 112/66 Pulse 90 Temp 36.3 ?C (97.4 ?F) Resp 16 Wt 64.4 kg (142 lb) LMP 10/25/2015 SpO2 97% PAST MEDICAL HISTORY Diagnosis Date Acne Generalized anxiety disorder PAST SURGICAL HISTORY Procedure Laterality Date DELIVERY ONLY , low transverse ALLERGIES Patient has no known allergies. MEDICATIONS spironolactone (ALDACTONE) 50 mg tablet Take 50 mg by mouth twice daily. FAMILY HISTORY Problem Relation Age of Onset Thyroid Mother Cancer Maternal Aunt thyroid carcinoma Breast Cancer Other Great grandma/maternal Lipids Maternal Grandfather Psychiatry Father depression Psychiatry Paternal Grandmother depression Social History Tobacco Use Smoking status: Never Smokeless tobacco: Never Substance Use Topics Alcohol use: No Drug use: No Objective Physical Exam Vitals and nursing note reviewed. HENT: Right Ear: Tympanic membrane, ear canal and external ear normal. Left Ear: Tympanic membrane, ear canal and external ear normal. Nose: Congestion and rhinorrhea present. Mouth/Throat: Mouth: Mucous membranes are moist. Pharynx: Uvula midline. Posterior oropharyngeal erythema present. No oropharyngeal exudate. Cardiovascular: Rate and Rhythm: Normal rate and regular rhythm. Heart sounds: Normal heart sounds. Pulmonary: Effort: Pulmonary effort is normal. No respiratory distress. Breath sounds: Normal breath sounds. No wheezing or rales. Musculoskeletal: Cervical back: Neck supple. Lymphadenopathy: Cervical: No cervical adenopathy. Skin: General: Skin is warm and dry. Findings: No erythema or rash. Neurological: Mental Status: She is alert. ASSESSMENT/PLAN: 1. Sore throat - ICD9: 462, ICD10: J02.9 - suspect viral - Alere Strep Test negative, no culture pending - Discussed supportive care treatment with fluids, rest and analgesia. - STREP A MOLECULAR (POC) 2. Viral URI with cough - ICD9: 465.9, ICD10: J06.9 - Discussed viral etiology and rationale for treatment. - Symptomatic treatment with prn analgesia - Supportive care with fluids and rest - Follow-up with your PCP in 3-5 days if symptoms have not improved or sooner if symptoms worsen - Discussed red flags and need for immediate medical evaluation if any occur. - Discussed supportive care treatment with fluids, rest and analgesia. - Discussed expected course of illness Luisana Liriano APRN.CNP [facility] Instructions 11-23-2022 Patient Instructions Note Date & Type Note Facility 11-23-2022 Instructions Luisana Liriano APRN.CNP - 11/23/2022 10:07 AM EDT ASSESSMENT/PLAN: 1. Sore throat - ICD9: 462, ICD10: J02.9 - suspect viral - Alere Strep Test negative, no culture pending - Discussed supportive care treatment with fluids, rest and analgesia. - STREP A MOLECULAR (POC) 2. Viral URI with cough - ICD9: 465.9, ICD10: J06.9 - Discussed viral etiology and rationale for treatment. - Symptomatic treatment with prn analgesia - Supportive care with fluids and rest - Follow-up with your PCP in 3-5 days if symptoms have not improved or sooner if symptoms worsen - Discussed red flags and need for immediate medical evaluation if any occur. - Discussed supportive care treatment with fluids, rest and analgesia. - Discussed expected course of illness Luisana Liriano APRN.CNP Treatment for Viral Upper Respiratory Tract Infections Your body will kill off the virus by itself. Additionally, you can prime your body's immune system. This may help you get better more quickly. Drink lots of fluids Make sure you are eating well Get plenty of rest We do not have any medications that kill off these viruses. Antibiotics are used to treat bacterial infections; however, they are not active against viral infections. There are some things that might help you feel better, though. Vaporizers, humidifiers, hot showers, and hot fluids help open respiratory and sinus passages [place] may offer relief of nasal and head congestion Reagan's Vapor Rub may relieve congestion Tylenol and Advil help control fevers and headaches Salt water gargles help relieve sore throats Chloraceptic spray or throat lozenges may also help relieve sore throat symptoms Occasionally, viral infections turn into something more serious. You should see your doctor or return to the Urgent Care if: You have fevers for longer than five days You have fevers above 102 degrees You are still sick after 10 days You have shortness of breath or wheezing After several days you are getting worse rather than better documented in this encounter [facility] History of Present illness Narrative 11-23-2022 Luisana Liriano APRN.CNP - 11/23/2022 10:01 AM EDT Note Date & Type Note Facility 11-23-2022 History of Presen t illness Narrative Subjective Sore Throat Associated symptoms include congestion and coughing. Pertinent negatives include no diarrhea, ear pain, shortness of breath or vomiting. Keisha Velasquez is a 32 year old female who presents with sore throat and runny nose and occasional cough for 4 days. She had a day where she felt nauseated. She took a COVID test at home which was negative. She has not had a fever. Her was sick with similar symptoms recently. Review of Systems Constitutional: Negative for chills and fever. HENT: Positive for congestion and sore throat. Negative for ear pain. Respiratory: Positive for cough. Negative for shortness of breath. Cardiovascular: Negative. Gastrointestinal: Positive for nausea. Negative for diarrhea and vomiting. Musculoskeletal: Negative for myalgias. BP 112/66 Pulse 90 Temp 36.3 C (97.4 F) Resp 16 Wt 64.4 kg (142 lb) LMP 10/25/2015 SpO2 97% PAST MEDICAL HISTORY Diagnosis Date Acne Generalized anxiety disorder PAST SURGICAL HISTORY Procedure Laterality Date DELIVERY ONLY , low transverse ALLERGIES Patient has no known allergies. MEDICATIONS spironolactone (ALDACTONE) 50 mg tablet Take 50 mg by mouth twice daily. FAMILY HISTORY Problem Relation Age of Onset Thyroid Mother Cancer Maternal Aunt thyroid carcinoma Breast Cancer Other Great grandma/maternal Lipids Maternal Grandfather Psychiatry Father depression Psychiatry Paternal Grandmother depression Social History Tobacco Use Smoking status: Never Smokeless tobacco: Never Substance Use Topics Alcohol use: No Drug use: No Objective Physical Exam Vitals and nursing note reviewed. HENT: Right Ear: Tympanic membrane, ear canal and external ear normal. Left Ear: Tympanic membrane, ear canal and external ear normal. Nose: Congestion and rhinorrhea present. Mouth/Throat: Mouth: Mucous membranes are moist. Pharynx: Uvula midline. Posterior oropharyngeal erythema present. No oropharyngeal exudate. Cardiovascular: Rate and Rhythm: Normal rate and regular rhythm. Heart sounds: Normal heart sounds. Pulmonary: Effort: Pulmonary effort is normal. No respiratory distress. Breath sounds: Normal breath sounds. No wheezing or rales. Musculoskeletal: Cervical back: Neck supple. Lymphadenopathy: Cervical: No cervical adenopathy. Skin: General: Skin is warm and dry. Findings: No erythema or rash. Neurological: Mental Status: She is alert. ASSESSMENT/PLAN: 1. Sore throat - ICD9: 462, ICD10: J02.9 - suspect viral - Alere Strep Test negative, no culture pending - Discussed supportive care treatment with fluids, rest and analgesia. - STREP A MOLECULAR (POC) 2. Viral URI with cough - ICD9: 465.9, ICD10: J06.9 - Discussed viral etiology and rationale for treatment. - Symptomatic treatment with prn analgesia - Supportive care with fluids and rest - Follow-up with your PCP in 3-5 days if symptoms have not improved or sooner if symptoms worsen - Discussed red flags and need for immediate medical evaluation if any occur. - Discussed supportive care treatment with fluids, rest and analgesia. - Discussed expected course of illness Luisana Liriano APRN.[employer] WORK[employer] documented in this encounter [facility] Evaluation note Note Date & Type Note Facility Evaluation note Diagnosis Onset Date Anxiety and depression acute [facility] Work Phone: Evaluation note Note Date & Type Note Facility Evaluation note Diagnosis Onset Date Vitamin deficiency acute Generalized anxiety disorder with panic attacks chronic [facility] Work Phone: Evaluation note Note Date & Type Note Facility Evaluation note Diagnosis Sore throat- Primary Acute pharyngitis Viral URI with cough Acute upper respiratory infections of unspecified site documented in this encounter [facility] Evaluation note Note Date & Type Note Facility Evaluation note No assessment information availa ble [facility] Work Phone: Reason for referral (narrative) Note Date & Type Note Facility Reason for referral (narrative) No reason for referral information available [facility] Work Phone: Chief Complaint and Reason for Visit Chief Complaint 6 M FU Reason for Visit Anxiety and depressi on Chief Complaint 6 M FU Reason for Visit Vitamin deficiency Generalized anxiety disorder with panic attacks Family History No Family History Records Found Relationship Condition Age at Onset Recorded Date/T ayaan mother Migraine headache Unknown sister Migraine headache Unknown uncle Migraine headache Unknown grandmother Migraine headache Unknown grandfather Cerebrovascular accident (CVA) Unknown Hypertension Unknown aunt Disorder of thyroid Unknown Advance Directives No Advanced Directives Records Found Advance Directive Response Recorded Date/ Time Advance Directives No September 24 3:09pm Living Will Yes July 23, 2016 10:05am Power of Demand Generation Manager No July 23 10:05am Advance Directive Response Recorded Date/ Time Advance Directives No September 24 3:09pm Summary Purpose Additional Source Comments Goals (unrecognized section and content) Goals may be documented in a n alternate sectionGoals may be documented in an alternate sectionGoals may be documented in an alternate section Care Teams (unrecognized sec tion and content) Team Status: Active Member Role Status Dates Dr. Santana Pa MD Family Provider Active Dr. Santana Pa MD Primary Care Provider Active Team Status: Inactive Member Role Status Dates Dr. Santana Pa MD Primary Care Provider, Refer ring Provider Active Justin Guadarrama RICE FARMER, RICE FARMER-C Attending Provider Active Team Status: Inactive Member Role Status Dates Dr. Santana Pa MD Primary Care Provider Active Justin Guadarrama RICE FARMER, RICE FARMER-C Attending Provider, Referring Prov ider Active Team Status: Active Member Role/Relationship Status Dates Dr. Santana Pa MD Family Provider Active Justin KWAN, RICE FARMER-C Primary Care Provider Active Team Status: Inactive Member Role/Relationship Status Dates Justin KWAN, RICE FARMER-C Primary Care Provider Active Start: November 16, 2024 End: November 16, 2024 Justin KWAN, RICE FARMER-C Attending Provider Active S tart: November 16, 2024 End: November 16, 2024 Source Comments (unrecognize d section and content) In the event this informatio n is protected by the Federal Confidentiality of Alcohol and Drug Abuse Patient Records regulations: The Federal rules restrict any use of the information to criminally investigate or prosecute any alcohol or drug abuse patient.[facility] Reason for Visit (unrecogniz ed section and content) Reason Comments Sore Throat x 4 days, cough and nausea INFORMATION SOURCE (unrecogn ized section and content) DATE CREATED AUTHOR 11/24/2022 [facility] DATE CREATED AUTHOR AUTHOR'S PATI CABRERA 11/27/2024 [facility] FOR RECORDS PERTAINING TO PATIENTS WHO ARE OR HAVE BEEN ENROLLED IN A CHEMICAL DEPENDENCY/SUBSTANCEABUSE PROGRAM, SOME INFORMATION MAY BE OMITTED. This clinical summary was aggregated from multiple sources. Caution should be exercised in using it in the provision of clinical care. This summary normalizes information from multiple sources, and as a consequence, information in this document may materially change the coding, format and clinical context of patient data. In addition, data may be omitted in some cases. CLINICAL DECISIONS SHOULD BE BASED ON THE PRIMARY CLINICAL RECORDS. [facility] ([employer] provides no warranty or guarantee of the accuracy or completeness of information in this document.
== END | disposition home or self-care (01) ==
LOC: LABSPEC 10:55
PROVIDERS: PCP Nurse Practitioner Family; Referring Provider Nurse Practitioner Family; Visit Provider Nurse Practitioner Family
DX: Z00.00 Encounter for general adult medical examination without abnormal findings (principal)
CPT/HCPCS: 82043; 82570